=== PATIENT | female | born 1985 | race Caucasian/White ===

== ENCOUNTER 2019-11-08 19:23 | Inpatient (IN) | payer BC ==
--- NOTE | 2019-11-08 20:24 | HP ---
General Information - Reason for Visit IUP at 40-4/7 in labor UCs started overnight and were q 10-12 min most of the day. In the last few hours feeling stronger and taking more focus to cope with UCs. Denies LOF. No VB. Reports active movement - General Information Maternal Age: 34 Grav: 4 Para: 3 SAB: 0 IEA: 0 Estimated Due Date: 11/04/19 Determined By: LMP Gestational Age in Weeks/Days: 40-7 Maternal Blood Type and Rh: O Negative - Results this Serology/RPR Result: Non-Reactive Rubella Result: Immune HBsAg Result: Negative HIV Result: Negative GBS Culture Result: Negative Past Medical History Delivery History: Hx Uncomplicated Vaginal Delivery Delivery History Comment: 04/2011 7lbs 5oz male. [place] [facility] [place] Ary Nava CNM 08/2013 8lbs 1oz male. [place] [facility] [place] Isabell Fields CNM 06/2016 7lbs 8oz male. [place] [facility] [place] Herminio Galarza CNM Pertinent Past Medical History: See Records Past Medical History Comment: Occular migraines with aura Varicose veins right leg, no evidence of thrombosis or DVT Pertinent Past Surgical History: See Records Past Surgical History Comment: LEEP Pertinent Family History: See Records Family History Comment: Father: DM Type 2, HTN, Hyperlipidemia Mother: HTN, Depression, Interstitial cystitis, glioblastoma. , brain cancer PGM: COPD, breast cancer, , COPD PGF: , lung cancer MGM: , ETOH abuse MGF: Skin cancer, HTN, liver failure - Antepartal Records Antepartal Records: Reviewed, Complicated by: - Rh negative, received 28 week RhoGAM, AMA age 34 at [facility], normal NIPT/MSAFP Review of Systems Constitutional: Uncomfortable - with UCs CV Complaint: No Respiratory: Shortness of Breath: No Gastrointestinal: No Nausea/Vomiting, Normal Bowel Movement Genitourinary: No Dysuria, No Bleeding, No Leaking Fluid Musculoskeletal: Back Pain, Contractions Neurological: No Headache, No Visual Changes Movement: Normal Exam Allergies/Adverse Reactions: Allergies No Known Allergies Allergy (Verified 11/08/19 19:43) BP 125/79 HR 84 RR 20 T 99.0 SpO2 100% on RA - Measurements Height: 5 ft 4 in Weight: 177 lb Weight in lbs: 174.141618 Body Mass Index (BMI): 30.4 Pre- Weight: 153 lb - NOTE: Weight gaine this : 24lbs Weight Gained This : 173.673 lbs and 0.011 ozs - Exam Breast: Breast Exam Deferred CVA: No CVA Tenderness Extremities: No Edema Heart: Normal Rhythm/Heart Sounds HEENT: No Significant Findings Lungs: Clear Bilaterally Rectal: Rectal Exam Deferred Reflexes: DTR 2+ Thyroid: No Thyromegaly Other Exam Findings: HEENT: TMs translucent with clear landmarks bilaterally, cone of light - Abdominal Exam Abdomen Exam: Non-Tender, Fundal Height Consistent with Dates - Ultrasound/Biophysical Profile Ultrasound Status: Not Done Targeted Exam Findings See L&D Outpatient Visit Provider Note for Findings: N/A Estimated Weight: EFW 7.5-8lbs by Keith Cervical Exam: 6cm, 7cm Effacement: 100% Station: -1 Presenting Part: Vertex Membrane Status: Intact Sterile Speculum Exam: Not done Bleeding/Discharge: Bloody Show EFM Findings - External Monitor Findings Baseline Heart Rate: 120 External Monitor Findings: Accelerations Present, No Pattern of Variable or Late Decelerations, Variability Moderate, Baseline Stable External Monitor Findings Comment: No evidence of metabolic acidemia Contractions: Regular, Moderate, Strong, 45-90 Seconds Contraction Frequency: q 5 min Assessment/Plan - Assessment IUP at 40-4/7 in labor No evidence of metabolic acidemia - Obstetrical Risk Factors Obstetrical Risk Factors: Post-Dates - Plan Plan: Admit - Anticipate Vaginal Delivery - Date/Time of Admission Date of Admission: 11/08/19 Time of Admission: 19:26
[2019-11-08 20:50] LABS: Urine Benzodiazepine Screen None Detected (None Detect); Urine Opiates Screen None Detected (None Detect)
[2019-11-09] MEDS ORDERED: OXYTOCIN* 10 UNITS/ML 1 ML VIAL IM ONE (00:58)
[2019-11-09] MEDS ORDERED: RHO D Immune Globulin (HUMAN)* 300 MCG = 1,500 I.U. INJ IM ONE (00:58)
[2019-11-09] MEDS ORDERED: Misoprostol TAB* 200 MCG PR ONE (00:58)
--- NOTE | 2019-11-09 01:06 | PROCNOTE ---
[facility] OB: Delivery Note - Delivery A Date of : 11/09/19 Time of : 00:23 [place] Sex: Male - "Jasmeet Brown" Score 1 Minute: 8 Score 5 Minutes: 9 Gestational Age in Weeks and Days at Delivery: 40 Weeks and 5 Days Delivery Method: Spontaneous Vaginal Labor: Spontaneous Did Patient attempt ?: N/A, No Previous Amniotic Fluid: Bloody Estimated Blood Loss: 500 Anesthesia/Analgesia: None Delivered By: Herminio Galarza - Nursery Level of Nursery: Regular/Bedside - Perineum Perineal Injury: 1st Degree - Repaired in the usual fashion with 3-0 Rapide under local infiltration 1% lidocaine. Anatomy restored and good hemostasis achieved. Pt tolerated well Perineal Repair: By Delivering Practioner - Events Delivery Events of Note: Post- Bleeding - Meds Given Delivery Events of Note Comment: Im Pitocin and Misoprostal given. Patient delivered in bathroom - Additional Delivery Notes Additional Delivery Notes: Machelle was admitted in active labor with expected progression to complete. Amniotomy to clear, blood tinged fluid at persistent anterior lip. Length of active phase 4 hours, 41 min. Pushed x 2 minutes standing in the bathroom. liveborn male. Slow, controlled delivery of head. Direct OA. Shoulders followed with strong maternal push. vigorous with spontaneous cry. HR>110bpm. Apgars 8/9. passed through pt's legs to mom's chest. Mom moved to bed. Cord clamped x 2 and cut by FOB when pulsations ceased. Spontaneous delivery intact placenta. Membranes complete. Fundus initially atonic. 10 units IM pitocin given. Atony improved with massage but returned when hand removed. 800mcg Cytotec given per rectum x 1. Fundus firm to massage and remained firm. Repair as above. EBL 500mL. At time of note mother and in stable condition. Breast feeding initiated.
[2019-11-09] MEDS: Dibucaine 1% 28.35 GM TUBE PR PRN ×2 (01:10→20:09)
[2019-11-09] MEDS: Ibuprofen TAB* 600 MG PO SCH ×4 (01:10→20:07)
[2019-11-09] MEDS: Witch Hazel PAD* JAR TOPICAL PRN ×2 (01:10→20:09)
[2019-11-09] MEDS ORDERED: Lidocaine 1% w EPI 1:200,000* SDV 30 ML VIAL ONE (05:18)
[2019-11-09] MEDS ORDERED: Lidocaine 1% INJ* 10 MG/ML 30 ML SDV ONE (05:19)
[2019-11-09] MEDS: Docusate CAP* 100 MG PO SCH ×3 (07:58→20:07)
[2019-11-09] MEDS: Acetaminophen TAB* 325 MG PO PRN ×2 (15:59→20:08)
[2019-11-10] MEDS: Acetaminophen TAB* 325 MG PO PRN ×2 (00:33→07:50)
[2019-11-10] MEDS: Ibuprofen TAB* 600 MG PO SCH ×2 (04:18→11:17)
[2019-11-10 06:11] LABS: ABS Eosinophils 0.2 10^3/ul (0-0.6); ABS Lymphocytes 2.3 10^3/ul (1.0-4.8); ABS Monocytes 0.7 10^3/ul (0-0.8); ABS Neutrophils 7.7 10^3/ul (1.5-7.7); Eosinophil % 1.9 %; Hematocrit 36 % (35-47); Hemoglobin 12.2 g/dL (12.0-16.0); Mean Corpuscular HGB Conc 34 g/dL (31-36); Mean Corpuscular Hemoglobin 31 pg (27-31); Mean Corpuscular Volume 92 fL (80-97); Mean Platelet Volume 10.3 fL (7.4-10.4); Platelet Count 153 10^3/uL (150-450); Red Blood Count 3.89 10^6 /uL (3.70-4.87); Red Cell Distribution Width 14 % (10-15)
[2019-11-10] MEDS: Docusate CAP* 100 MG PO SCH (07:50)
[2019-11-10] MEDS: Dibucaine 1% 28.35 GM TUBE PR PRN (07:50)
[2019-11-10 08:01] VITALS: BP 105/81
[2019-11-10] MEDS ORDERED: Ferrous Gluconate TAB* 324 MG TAB PO SCH (09:00)
== END 2019-11-10 13:10 | disposition home or self-care (01) | DRG 560 ==
LOC: MCHOBOUT 19:23 → MCHOB 19:26
PROVIDERS: ADMIT Midwife; ATTEND Midwife
PROC: 10E0XZZ Delivery of Products of Conception, External Approach (ICD-10-PCS; principal; 2019-11-09)
PROC: 10907ZC Drainage of Amniotic Fluid, Therapeutic from Products of Conception, Via Natural or Artificial Opening (ICD-10-PCS; 2019-11-09)
PROC: 0HQ9XZZ Repair Perineum Skin, External Approach (ICD-10-PCS; 2019-11-09)
DX: O48.0 Post-term pregnancy (principal); O72.1 Other immediate postpartum hemorrhage; Z37.0 Single live birth; Z3A.40 40 weeks gestation of pregnancy; O70.0 First degree perineal laceration during delivery
CPT/HCPCS: 36415; 80307; 85025; A9270-GY; G0480; J2001; J2590